=== PATIENT | female | born 1985 | race Caucasian/White ===

== ENCOUNTER 2016-10-09 03:32 | Emergency (ER) | payer OTHER ==
[~2016-10-09] VITALS: Ht 160 cm; Wt 122.0 kg
[~2016-10-09 03:32] MED LIST: KEFLEX500 MG PO; NAPROSYN500 MG PO; TRAMADOL HCL50 MG PO
[2016-10-09] MEDS ORDERED: PREDNISONE10 MG PO (05:04)
[2016-10-09 05:51] VITALS: BP 140/92
== END 2016-10-09 05:53 | disposition home or self-care (01) ==
LOC: EME 03:32
DX: T48.4X5A Adverse effect of expectorants, initial encounter (principal); R21 Rash and other nonspecific skin eruption; L29.9 Pruritus, unspecified; J02.8 Acute pharyngitis due to other specified organisms
CPT/HCPCS: 87651 90; 99281; 99283; J1100

== ENCOUNTER 2017-12-28 17:11 | Emergency (ER) | payer OTHER ==
[~2017-12-28] VITALS: Ht 162.6 cm; Wt 123.0 kg
[~2017-12-28 17:11] MED LIST changes: +PREDNISONE10 MG PO
[2017-12-28 18:02] LABS: HEMATOCRIT 36.4 % (36.0-46.0); HEMOGLOBIN 12.4 G/DL (11.9-15.5); MCH 29.1 PG (29.0-34.0); MCHC 34.1 G/DL (30.0-36.0); MCV 85.4 FL (83-99); PLATELET COUNT 253 K/uL (156-360); RBC DIS.WIDTH-CV 12.9 % (11.8-14.6); RED BLOOD COUNT 4.26 M/uL (3.80-5.20); WHITE BLOOD COUNT 11.2 K/uL (4.1-10.2)
[2017-12-28 18:40] LABS: APPEARANCE SL.HAZY ((CLEAR)); BILIRUBIN NEGATIVE; BLOOD MODERATE; COLOR YELLOW ((YELLOW)); GLUCOSE (STRIP) NEGATIVE; KETONES NEGATIVE; LEUKOCYTES NEGATIVE; NITRITE NEGATIVE; PROTEIN (STRIP) NEGATIVE; SPECIFIC GRAVITY 1.028 (1.000-1.030); UROBILINOGEN 0.2 MG/DL (0.2-1.0)
[2017-12-28 18:45] LABS: BACTERIA RARE /HPF; EPITHELIAL CELLS RARE /HPF; MUCUS 3+ /LPF; RED BLOOD CELLS 0-5 /HPF (0-5); WHITE BLOOD CELLS 0-5 /HPF (0-5)
[2017-12-28 19:52] VITALS: BP 135/84
== END 2017-12-28 19:53 | disposition home or self-care (01) ==
LOC: EME 17:11
PROVIDERS: Physician Assistant
DX: O20.0 Threatened abortion (principal); Z3A.12 12 weeks gestation of pregnancy
CPT/HCPCS: 76801; 81003; 84702; 85027; 86900; 86901; 99281; 99284